=== PATIENT | male | born 1975 | race Caucasian/White ===

== ENCOUNTER 2016-11-12 17:54 | Emergency (ER) | payer MEDICAID, OTHER ==
[~2016-11-12] VITALS: Ht 175.3 cm; Wt 58.2 kg
[~2016-11-12 17:54] MED LIST: CHLO25CA9 PO; DIPH25CA61 PO; FURO-92 PO; FURO20TA3 PO; NAPR-874 PO; OMEP-110 PO; SERT50TA5 PO; SPIR100T2 PO; SPIR25TA3 PO; TRAZ50TA18 PO
[2016-11-12] MEDS ORDERED: SERT50TA5 PO (18:12)
[2016-11-12] MEDS ORDERED: DIVA-68 PO (18:12)
[2016-11-12] MEDS ORDERED: SODIUM CHLORIDE 0.9% 1,000ML IVBOLUS ONE (18:30)
[2016-11-12] MEDS ORDERED: LORazepam 2 MG/ML, 1ML IVPush ONE (18:30)
[2016-11-12] MEDS ORDERED: ONDANSETRON 2MG/ML, 2ML IVPush ONE (18:30)
[2016-11-12] MEDS ORDERED: SODIUM CHLORIDE FLUSH 10ML SYR IVF ONE (18:30)
[2016-11-12] MEDS ORDERED: FAMOTIDINE 20 MG/2 ML IVP ONE (18:30)
[2016-11-12] MEDS ORDERED: LORazepam 2 MG/ML, 1ML ONE (18:42)
[2016-11-12] MEDS ORDERED: ONDANSETRON 2MG/ML, 2ML ONE (18:44)
[2016-11-12] MEDS ORDERED: FAMOTIDINE 20 MG/2 ML ONE (18:44)
[2016-11-12 18:48] LABS: ASPARTATE AMINO TRANSFERASE 590 U/L (15-37); BLOOD UREA NITROGEN 14 mg/dL (7-18)
[2016-11-12 19:11] LABS: DAU SCREEN DISCLAIMER
[2016-11-12] MEDS ORDERED: POTASSIUM CHLORIDE 20 MEQ TAB.ER.PRT PO ONE (19:30)
[2016-11-12] MEDS ORDERED: POTASSIUM CHLORIDE 20 MEQ in SODIUM CHLORIDE 0.9% 250 ML IV ONE (19:30)
[2016-11-12] MEDS ORDERED: POTASSIUM CHLORIDE 20 MEQ TAB.ER.PRT ONE (19:42)
[2016-11-12] MEDS ORDERED: MAGNESIUM SULFATE 1 GM in SODIUM CHLORIDE 0.9% 50 ML IV ONE (21:00)
[2016-11-12] MEDS ORDERED: THIAMINE 100MG TABLET PO ONE (21:00)
[2016-11-12] MEDS ORDERED: THIAMINE 100MG TABLET ONE (21:39)
[2016-11-12 22:30] VITALS: BP 106/67
== END 2016-11-12 23:09 | disposition home or self-care (01) ==
LOC: ED 18:57
DX: K70.30 Alcoholic cirrhosis of liver without ascites (principal); F10.10 Alcohol abuse, uncomplicated; E83.42 Hypomagnesemia; E87.6 Hypokalemia
CPT/HCPCS: 36415; 80053; 80307; 81001; 82962; 83690; 83735; 85025; 85610; 85730; 93005; 96361; 96365; 96366; 96368; 96375; 99285; J2060; J2405; J3475; J3480; J7030; J7050; S0028

== ENCOUNTER 2016-11-14 07:35 | Inpatient (IN) | payer OTHER, MEDICAID ==
[~2016-11-14] VITALS: Ht 170.2 cm; Wt 60.1 kg
[~2016-11-14 07:35] MED LIST changes: +DIVA-68 PO
[2016-11-14] MEDS ORDERED: SODIUM CHLORIDE 0.9% 1,000 ML IV ONE (07:41)
[2016-11-14] MEDS ORDERED: LORazepam 2 MG/ML, 1ML ONE ×7 (07:47→12:35)
[2016-11-14] MEDS: LORazepam 2 MG/ML, 1ML IVPush PRN ×7 (07:50→12:42)
[2016-11-14] MEDS ORDERED: THIAMINE 100 MG in SODIUM CHLORIDE 0.9% 50 ML IVPB ONE (08:00)
[2016-11-14] MEDS ORDERED: SODIUM CHLORIDE 0.9% 1,000ML IVBOLUS ONE (08:00)
[2016-11-14 08:37] LABS: ASPARTATE AMINO TRANSFERASE 243 U/L (15-37); BLOOD UREA NITROGEN 10 mg/dL (7-18)
[2016-11-14] MEDS ORDERED: NS + 40MEQ KCL 1,000 ML IV ONE (08:42)
[2016-11-14] MEDS ORDERED: MAGNESIUM SULFATE 1 GM in SODIUM CHLORIDE 0.9% 50 ML IV ONE (09:00)
[2016-11-14] MEDS ORDERED: POTASSIUM CHLORIDE 40 MEQ in SODIUM CHLORIDE 0.9% 500 ML IV ONE ×2 (09:00→13:30)
[2016-11-14] MEDS ORDERED: MAGNESIUM SULFATE 1 GM/2 ML IVPush ONE (09:00)
[2016-11-14 09:51] LABS: DAU SCREEN DISCLAIMER
[2016-11-14] MEDS ORDERED: SODIUM CHLORIDE FLUSH 10ML SYR IVF PRN (10:30)
[2016-11-14] MEDS ORDERED: LORazepam 2 MG/ML, 1ML IV PRN ×2 (13:00)
[2016-11-14] MEDS ORDERED: BISACODYL 10 MG SUPP PR PRN (13:30)
[2016-11-14] MEDS ORDERED: POLYETHYLENE GLYCOL 17 GM PACKET PO PRN (13:30)
[2016-11-14] MEDS ORDERED: FOLIC ACID 1 MG, THIAMINE 100 MG, MVI ADULT 10 ML in D5%-0.9% NACL 1,000 ML IV SCH (13:30)
[2016-11-14 13:56] LABS: BLOOD UREA NITROGEN 7 mg/dL (7-18)
[2016-11-14] MEDS: methylPREDNISolone SOD SUCC 40 MG/ML IV SCH (17:11)
[2016-11-14] MEDS: PANTOPRAZOLE 40 MG IV IVPush SCH (17:34)
[2016-11-14] MEDS: SODIUM CHLORIDE 0.9% 1,000 ML IV SCH (23:01)
[2016-11-15 04:00] VITALS: BP 121/85
[2016-11-15] MEDS: SODIUM CHLORIDE 0.9% 1,000 ML IV SCH ×2 (06:05→17:45)
[2016-11-15 06:34] LABS: BLOOD UREA NITROGEN 5 mg/dL (7-18)
[2016-11-15 06:39] LABS: ASPARTATE AMINO TRANSFERASE 145 U/L (15-37)
[2016-11-15] MEDS ORDERED: PANTOPROZOLE 40MG TABLET PO SCH (07:30)
[2016-11-15] MEDS: PANTOPRAZOLE 40 MG IV IVPush SCH (07:47)
[2016-11-15] MEDS: LORazepam 2 MG/ML, 1ML IV PRN ×5 (07:47→20:09)
[2016-11-15] MEDS: THIAMINE 100MG TABLET PO SCH (09:33)
[2016-11-15] MEDS: FOLIC ACID 1 MG TABLET PO SCH (09:33)
[2016-11-15] MEDS: MULTIVITAMIN 1 TABLET PO SCH (09:33)
[2016-11-15] MEDS: DIVALPROEX 500 MG TABLET.DR PO SCH ×2 (09:48→20:43)
[2016-11-15] MEDS: SERTRALINE 50MG TABLET PO SCH (09:48)
[2016-11-15] MEDS ORDERED: MAGNESIUM SULFATE PMX 4GM/100M 100 ML IV ONE (10:00)
[2016-11-15 13:40] VITALS: BP 119/87
[2016-11-15] MEDS: methylPREDNISolone SOD SUCC 40 MG/ML IV SCH (13:52)
[2016-11-15 19:54] VITALS: BP 121/85
[2016-11-16] MEDS: SODIUM CHLORIDE 0.9% 1,000 ML IV SCH ×3 (02:05→21:24)
[2016-11-16 02:06] VITALS: BP 127/87
[2016-11-16] MEDS: LORazepam 2 MG/ML, 1ML IV PRN ×3 (02:12→21:35)
[2016-11-16 04:50] LABS: ASPARTATE AMINO TRANSFERASE 91 U/L (15-37); BLOOD UREA NITROGEN 8 mg/dL (7-18)
[2016-11-16 07:54] VITALS: BP 126/92
[2016-11-16] MEDS: THIAMINE 100MG TABLET PO SCH (08:07)
[2016-11-16] MEDS: PANTOPRAZOLE 40 MG IV IVPush SCH (08:07)
[2016-11-16] MEDS: SERTRALINE 50MG TABLET PO SCH (08:07)
[2016-11-16] MEDS: MULTIVITAMIN 1 TABLET PO SCH (08:07)
[2016-11-16] MEDS: DIVALPROEX 500 MG TABLET.DR PO SCH ×2 (08:07→21:24)
[2016-11-16] MEDS: FOLIC ACID 1 MG TABLET PO SCH (08:07)
[2016-11-16] MEDS: methylPREDNISolone SOD SUCC 40 MG/ML IV SCH (14:17)
[2016-11-16 14:31] VITALS: BP 116/79
[2016-11-16 20:24] VITALS: BP 127/88
[2016-11-16] MEDS: CHLORDIAZEPOXIDE 25 MG CAPSULE PO SCH (21:24)
[2016-11-17 01:24] VITALS: BP 126/78
[2016-11-17] MEDS: LORazepam 2 MG/ML, 1ML IV PRN ×2 (02:13→06:39)
[2016-11-17] MEDS: SODIUM CHLORIDE 0.9% 1,000 ML IV SCH (05:16)
[2016-11-17 06:05] LABS: BLOOD UREA NITROGEN 10 mg/dL (7-18)
[2016-11-17 06:08] LABS: ASPARTATE AMINO TRANSFERASE 64 U/L (15-37)
[2016-11-17 07:07] LABS: DIFF TOTAL CELLS COUNTED 100 CELL DIFF
[2016-11-17 07:12] LABS: LARGE PLATELETS 1+; VERIFY COUNTS? YES
[2016-11-17 07:22] VITALS: BP 133/85
[2016-11-17] MEDS ORDERED: LORazepam 2 MG/ML, 1ML IVPush PRN (09:00)
[2016-11-17] MEDS: THIAMINE 100MG TABLET PO SCH (09:09)
[2016-11-17] MEDS: FOLIC ACID 1 MG TABLET PO SCH (09:09)
[2016-11-17] MEDS: SERTRALINE 50MG TABLET PO SCH (09:09)
[2016-11-17] MEDS: DIVALPROEX 500 MG TABLET.DR PO SCH ×2 (09:09→21:37)
[2016-11-17] MEDS: MULTIVITAMIN 1 TABLET PO SCH (09:09)
[2016-11-17] MEDS: CHLORDIAZEPOXIDE 25 MG CAPSULE PO SCH ×3 (09:09→21:37)
[2016-11-17] MEDS ORDERED: MAGNESIUM SULFATE PMX 2GM/50ML 50 ML IV ONE (09:30)
[2016-11-17] MEDS: POTASSIUM CHLORIDE 20 MEQ TAB.ER.PRT PO SCH ×2 (10:10→16:31)
[2016-11-17 15:45] VITALS: BP 122/83
[2016-11-17] MEDS: methylPREDNISolone SOD SUCC 40 MG/ML IV SCH (16:31)
[2016-11-17] MEDS: LORazepam 1MG TABLET PO PRN (21:47)
[2016-11-17 22:26] VITALS: BP 108/75
[2016-11-18] MEDS: LORazepam 1MG TABLET PO PRN (02:16)
[2016-11-18 02:34] VITALS: BP 123/85
[2016-11-18 05:53] LABS: BLOOD UREA NITROGEN 10 mg/dL (7-18)
[2016-11-18 08:00] VITALS: BP 120/83
[2016-11-18] MEDS: SERTRALINE 50MG TABLET PO SCH (08:38)
[2016-11-18] MEDS: MULTIVITAMIN 1 TABLET PO SCH (08:38)
[2016-11-18] MEDS: FOLIC ACID 1 MG TABLET PO SCH (08:38)
[2016-11-18] MEDS: DIVALPROEX 500 MG TABLET.DR PO SCH (08:38)
[2016-11-18] MEDS: POTASSIUM CHLORIDE 20 MEQ TAB.ER.PRT PO SCH (08:38)
[2016-11-18] MEDS: THIAMINE 100MG TABLET PO SCH (08:38)
[2016-11-18] MEDS: CHLORDIAZEPOXIDE 25 MG CAPSULE PO SCH (08:38)
[2016-11-18] MEDS ORDERED: PRED5TAB26 PO (09:48)
[2016-11-18] MEDS ORDERED: CHLO25CA9 PO (09:48)
== END 2016-11-18 12:02 | disposition home or self-care (01) | DRG 896 ==
LOC: ED 08:58 → EDIP 10:03 → CCU 15:01 → 4NOR 11-16 09:40
PROVIDERS: ADMIT Hospitalist
DX: F10.239 Alcohol dependence with withdrawal, unspecified (principal); G93.40 Encephalopathy, unspecified; D61.818 Other pancytopenia; E87.6 Hypokalemia; D69.59 Other secondary thrombocytopenia; F43.10 Post-traumatic stress disorder, unspecified; G40.909 Epilepsy, unspecified, not intractable, without status epilepticus; K70.10 Alcoholic hepatitis without ascites; K74.60 Unspecified cirrhosis of liver; F32.9 Major depressive disorder, single episode, unspecified; B19.20 Unspecified viral hepatitis C without hepatic coma; Z91.018 Allergy to other foods; Z87.81 Personal history of (healed) traumatic fracture
CPT/HCPCS: 36415; 70450; 76700; 80048; 80053; 80307; 81001; 82140; 83690; 83735; 84100; 85025; 85610; 85730; 87081; 93005; 96365; 96366; 96375; 96376; J3411; J3475; J3480; J7042; C9113; J2060; J2920; J7030; J7040

== ENCOUNTER 2018-01-09 23:03 | Inpatient (IN) | payer OTHER ==
[~2018-01-09] VITALS: Ht 167.6 cm; Wt 57.4 kg
[~2018-01-09 23:03] MED LIST changes: +DIVA-61 PO; -DIVA-68 PO; -NAPR-874 PO; +NAPR250T6 PO; +PRED5TAB26 PO; -SPIR100T2 PO; +SPIR100T4 PO; -SPIR25TA3 PO; +SPIR25TA5 PO; +TRAZ-136 PO; -TRAZ50TA18 PO
[2018-01-09] MEDS ORDERED: LORazepam 2 MG/ML, 1ML ONE (23:10)
[2018-01-09] MEDS ORDERED: LORazepam 2 MG/ML, 1ML IVPush ONE (23:30)
[2018-01-09] MEDS ORDERED: SODIUM CHLORIDE 0.9% 1,000ML IVBOLUS ONE (23:30)
[2018-01-09] MEDS ORDERED: PROMETHAZINE 25 MG/ML, 1ML IM ONE (23:30)
[2018-01-09] MEDS ORDERED: THIAMINE 100 MG in SODIUM CHLORIDE 0.9% 50 ML IVPB ONE (23:30)
[2018-01-09] MEDS ORDERED: ONDANSETRON ODT 4 MG PO ONE (23:30)
[2018-01-09] MEDS ORDERED: SODIUM CHLORIDE FLUSH 10ML SYR IVF ONE (23:30)
[2018-01-09] MEDS ORDERED: ONDANSETRON ODT 4 MG ONE (23:42)
[2018-01-10] MEDS ORDERED: LORazepam 2 MG/ML, 1ML ONE ×2 (00:10→00:45)
[2018-01-10] MEDS: LORazepam 2 MG/ML, 1ML IVPush PRN ×3 (00:14→01:00)
[2018-01-10 00:21] LABS: ALANINE AMINOTRANSFERASE 49 U/L (12-78); ALBUMIN 3.1 g/dL (3.4-5.0); CALCIUM 8.3 mg/dL (8.5-10.1); CHLORIDE 97 mmol/L (98-107)
[2018-01-10 00:23] LABS: ALKALINE PHOSPHATASE 135 U/L (45-117); TOTAL PROTEIN 6.9 g/dL (6.4-8.2)
[2018-01-10 00:31] LABS: ANION GAP 13 mmol/L (5-15)
[2018-01-10] MEDS ORDERED: NS + 40MEQ KCL 1,000 ML IV ONE (00:58)
[2018-01-10] MEDS ORDERED: POTASSIUM CHLORIDE 40 MEQ in SODIUM CHLORIDE 0.9% 500 ML IV ONE ×2 (01:00→13:00)
[2018-01-10] MEDS ORDERED: PHENOBARBITAL SODIUM 640 MG in SODIUM CHLORIDE 0.9% 50 ML IV ONE (01:30)
[2018-01-10 01:48] LABS: MEAN CORPUSCULAR HEMOGLOBIN 33.4 pg (27.5-34.5); MEAN CORPUSCULAR HGB CONC 34.8 g/dL (33.2-36.2); MEAN PLATELET VOLUME 10.7 fL (7.4-10.4); PLATELET COUNT 52 x10^3/uL (130-400); RED BLOOD COUNT 4.29 x10^6/uL (4.38-5.82); RED CELL DISTRIBUTION WIDTH 14.7 % (9.4-14.8)
[2018-01-10 02:02] LABS: MD YES
[2018-01-10 02:07] LABS: BASOS#(MANUAL) 0.07 x10^3/uL (0-0.1); BASOS% (MANUAL) 1 % (0-1); LYMPH#(MANUAL) 1.52 x10^3/uL (1-3.4); LYMPHS% (MANUAL) 23 % (22-44); METAMYELOCYTES# (MANUAL) 0.07 x10^3/uL (0-0); METAMYELOCYTES% (MANUAL) 1 % (0-1); MONOS% (MANUAL) 6 % (2-9); SEG#(MANUAL) 4.55 x10^3/uL (1.8-6.8); SEGS% (MANUAL) 69 % (42-75)
[2018-01-10 02:08] LABS: <PLATELET ESTIMATE> DECREASED; LARGE PLATELETS 1+
[2018-01-10 02:09] LABS: <RBC MORPHOLOGY> NORMAL
[2018-01-10] MEDS ORDERED: MAGNESIUM SULFATE PMX 2GM/50ML 50 ML IV ONE (02:30)
[2018-01-10] MEDS ORDERED: POTASSIUM CHLORIDE 20 MEQ, MAGNESIUM SULFATE 2 GM, THIAMINE 100 MG, MVI ADULT 10 ML, FO... IV SCH (02:33)
[2018-01-10] MEDS ORDERED: hydrALAzine 20 MG/ML, 1ML IVPush PRN (03:00)
[2018-01-10] MEDS ORDERED: DOCUSATE 100 MG CAPSULE PO PRN (03:00)
[2018-01-10] MEDS ORDERED: ICN PHENOBARBITAL 10 MG/ML IV IV ONE (03:00)
[2018-01-10] MEDS ORDERED: ONDANSETRON 2MG/ML, 2ML IVPush PRN (03:00)
[2018-01-10] MEDS ORDERED: GABAPENTIN 300 MG CAPSULE PO PRN (03:00)
[2018-01-10] MEDS ORDERED: PROMETHAZINE 25 MG/ML, 1ML IM PRN (03:00)
[2018-01-10] MEDS ORDERED: LABETALOL 5MG/ML, 20ML IVPush PRN (03:00)
[2018-01-10] MEDS ORDERED: BISACODYL 10 MG SUPP PR PRN (03:00)
[2018-01-10] MEDS ORDERED: POLYETHYLENE GLYCOL 17 GM PACKET PO PRN (03:00)
[2018-01-10] MEDS ORDERED: morphine SULFATE 10 MG/ML, 1ML IVPush PRN (03:00)
[2018-01-10] MEDS ORDERED: BACLOFEN 10 MG TABLET PO PRN (03:00)
[2018-01-10 03:15] VITALS: BP 95/68
[2018-01-10 03:21] LABS: INTERNATIONAL NORMALIZED RATIO 1.61 (0.93-1.1); PROTHROMBIN TIME 16.4 Seconds (9.6-11.5)
[2018-01-10 03:48] LABS: CREATINE KINASE, TOTAL 73 U/L (39-308); FREE T4 (FREE THYROXINE) 1.21 ng/dL (0.76-1.46)
[2018-01-10 04:00] VITALS: BP 95/68
[2018-01-10] MEDS ORDERED: PHENOBARBITAL SODIUM IV PRN (04:30)
[2018-01-10] MEDS ORDERED: SODIUM CHLORIDE 0.9% IV PRN (04:30)
[2018-01-10 04:50] LABS: MEAN CORPUSCULAR HEMOGLOBIN 33.9 pg (27.5-34.5); MEAN CORPUSCULAR HGB CONC 34.9 g/dL (33.2-36.2); MEAN CORPUSCULAR VOLUME 97.1 fL (81-97); RED CELL DISTRIBUTION WIDTH 14.9 % (9.4-14.8)
[2018-01-10 04:51] LABS: CHLORIDE 108 mmol/L (98-107)
[2018-01-10 04:58] LABS: ANION GAP 9 mmol/L (5-15); CALCIUM 6.8 mg/dL (8.5-10.1); CREATININE 0.64 mg/dL (0.7-1.3)
[2018-01-10 04:59] LABS: ALANINE AMINOTRANSFERASE 38 U/L (12-78); ALBUMIN 2.2 g/dL (3.4-5.0); ALKALINE PHOSPHATASE 104 U/L (45-117); BILIRUBIN,TOTAL 5.7 mg/dL (0.2-1.0); TOTAL PROTEIN 5.5 g/dL (6.4-8.2)
[2018-01-10] MEDS: VALPROATE SODIUM 500 MG in SODIUM CHLORIDE 0.9% 100 ML IV SCH ×2 (05:39→16:02)
[2018-01-10 05:46] LABS: MEAN PLATELET VOLUME 9.5 fL (7.4-10.4)
[2018-01-10 05:47] LABS: PLATELET COUNT 36 x10^3/uL (130-400)
[2018-01-10 05:49] LABS: BASOPHILS # (AUTO) 0.01 x10^3/uL (0-0.1); BASOPHILS % (AUTO) 0 % (0-1); EOSINOPHILS # (AUTO) 0.03 x10^3/uL (0-0.4); EOSINOPHILS % (AUTO) 1 % (1-7); LYMPHOCYTES # (AUTO) 0.85 x10^3/uL (1-3.4); LYMPHOCYTES % (AUTO) 20 % (22-44); MD SCAN; MONOCYTES # (AUTO) 0.68 x10^3/uL (0.2-0.8); MONOCYTES % (AUTO) 16 % (2-9); NEUTROPHILS # (AUTO) 2.76 x10^3/uL (1.8-6.8); NEUTROPHILS % (AUTO) 64 % (42-75)
[2018-01-10 08:38] LABS: AMPHETAMINE SCREEN, URINE Negative (Negative); BARBITURATE SCREEN, URINE Positive (Negative)
[2018-01-10 08:44] LABS: BENZODIAZEPINE SCREEN, URINE Negative (Negative); CANNABINOID SCREEN, URINE Positive (Negative); COCAINE SCREEN, URINE Negative (Negative); METHADONE SCREEN, URINE Negative (Negative); OPIATE SCREEN, URINE Negative (Negative)
[2018-01-10] MEDS ORDERED: FAMOTIDINE 20 MG/2 ML IVPush SCH (09:00)
[2018-01-10 09:15] LABS: MICROSCOPIC INDICATED
[2018-01-10 09:25] LABS: CULTURE INDICATED? YES
[2018-01-10] MEDS ORDERED: PHENOBARBITAL 20 MG/5 ML ORAL SOL PO SCH (10:00)
[2018-01-10] MEDS: PHENOBARBITAL SODIUM 65 MG/ML, 1ML IM SCH ×2 (10:40→23:11)
[2018-01-10] MEDS ORDERED: POTASSIUM CHLORIDE 20 MEQ TAB.ER.PRT PO ONE (12:00)
[2018-01-10] MEDS: ERGOCALCIFEROL 50,000 UNIT CAPSULE PO SCH (13:06)
[2018-01-10] MEDS: PANTOPRAZOLE 40 MG IV IVPush SCH (13:11)
[2018-01-11] MEDS: VALPROATE SODIUM 500 MG in SODIUM CHLORIDE 0.9% 100 ML IV SCH ×2 (02:39→15:30)
[2018-01-11 04:21] LABS: MEAN CORPUSCULAR HEMOGLOBIN 34.1 pg (27.5-34.5); MEAN CORPUSCULAR HGB CONC 34.8 g/dL (33.2-36.2); MEAN CORPUSCULAR VOLUME 98.1 fL (81-97); MEAN PLATELET VOLUME 9.3 fL (7.4-10.4); RED BLOOD COUNT 3.99 x10^6/uL (4.38-5.82); RED CELL DISTRIBUTION WIDTH 14.4 % (9.4-14.8)
[2018-01-11 04:25] LABS: INTERNATIONAL NORMALIZED RATIO 1.32 (0.93-1.1); PROTHROMBIN TIME 13.5 Seconds (9.6-11.5)
[2018-01-11 04:28] LABS: ALANINE AMINOTRANSFERASE 44 U/L (12-78); ALBUMIN 2.9 g/dL (3.4-5.0); ANION GAP 9 mmol/L (5-15); CALCIUM 7.4 mg/dL (8.5-10.1); CHLORIDE 99 mmol/L (98-107); CREATININE 0.59 mg/dL (0.7-1.3)
[2018-01-11 04:30] LABS: ALKALINE PHOSPHATASE 117 U/L (45-117); BILIRUBIN,TOTAL 5.1 mg/dL (0.2-1.0); TOTAL PROTEIN 6.5 g/dL (6.4-8.2)
[2018-01-11 04:34] VITALS: BP 110/77
[2018-01-11] MEDS: THIAMINE 200 MG, MVI ADULT 10 ML, FOLIC ACID 1 MG in D5%-0.9% NACL 1,000 ML IV SCH (04:39)
[2018-01-11 05:12] LABS: PLATELET COUNT 46 x10^3/uL (130-400)
[2018-01-11] MEDS ORDERED: DIPHENHYDRAMINE 50 MG/ML, 1ML IVPush ONE (05:30)
[2018-01-11] MEDS ORDERED: DIPHENHYDRAMINE 50 MG/ML, 1ML ONE (05:38)
[2018-01-11 05:39] LABS: BASOPHILS # (AUTO) 0.03 x10^3/uL (0-0.1); BASOPHILS % (AUTO) 1 % (0-1); EOSINOPHILS # (AUTO) 0.07 x10^3/uL (0-0.4); EOSINOPHILS % (AUTO) 2 % (1-7); LYMPHOCYTES # (AUTO) 0.92 x10^3/uL (1-3.4); LYMPHOCYTES % (AUTO) 21 % (22-44); MD SCAN; MONOCYTES # (AUTO) 0.65 x10^3/uL (0.2-0.8); MONOCYTES % (AUTO) 15 % (2-9); NEUTROPHILS # (AUTO) 2.75 x10^3/uL (1.8-6.8); NEUTROPHILS % (AUTO) 62 % (42-75)
[2018-01-11] MEDS ORDERED: POTASSIUM PHOSPHATE 44 MEQ in SODIUM CHLORIDE 0.9% 500 ML IV ONE (10:30)
[2018-01-11] MEDS ORDERED: MAGNESIUM SULFATE 4 GM in SODIUM CHLORIDE 0.9% 100 ML IV ONE (10:30)
[2018-01-11] MEDS ORDERED: POTASSIUM CHLORIDE 40 MEQ in SODIUM CHLORIDE 0.9% 500 ML IV ONE (10:30)
[2018-01-11] MEDS ORDERED: POTASSIUM CHLORIDE 20 MEQ TAB.ER.PRT PO ONE (10:30)
[2018-01-11] MEDS: PHENOBARBITAL SODIUM 65 MG/ML, 1ML IM SCH ×2 (10:46→21:52)
[2018-01-11] MEDS: PANTOPRAZOLE 40 MG IV IVPush SCH (10:47)
[2018-01-12] MEDS: VALPROATE SODIUM 500 MG in SODIUM CHLORIDE 0.9% 100 ML IV SCH ×2 (03:07→16:05)
[2018-01-12 04:00] VITALS: BP 146/92
[2018-01-12] MEDS: THIAMINE 200 MG, MVI ADULT 10 ML, FOLIC ACID 1 MG in D5%-0.9% NACL 1,000 ML IV SCH (04:36)
[2018-01-12 04:39] LABS: ALANINE AMINOTRANSFERASE 43 U/L (12-78); ALBUMIN 2.8 g/dL (3.4-5.0); ANION GAP 9 mmol/L (5-15); CALCIUM 7.8 mg/dL (8.5-10.1); CHLORIDE 101 mmol/L (98-107); CREATININE 0.46 mg/dL (0.7-1.3); MEAN CORPUSCULAR HEMOGLOBIN 34.1 pg (27.5-34.5); MEAN CORPUSCULAR HGB CONC 34.6 g/dL (33.2-36.2); MEAN CORPUSCULAR VOLUME 98.5 fL (81-97); MEAN PLATELET VOLUME 8.9 fL (7.4-10.4); RED BLOOD COUNT 3.93 x10^6/uL (4.38-5.82); RED CELL DISTRIBUTION WIDTH 14.6 % (9.4-14.8)
[2018-01-12 04:41] LABS: PLATELET COUNT 46 x10^3/uL (130-400)
[2018-01-12 04:42] LABS: ALKALINE PHOSPHATASE 121 U/L (45-117); BILIRUBIN,TOTAL 3.9 mg/dL (0.2-1.0); TOTAL PROTEIN 6.5 g/dL (6.4-8.2)
[2018-01-12 04:57] LABS: BASOPHILS # (AUTO) 0.03 x10^3/uL (0-0.1); BASOPHILS % (AUTO) 1 % (0-1); EOSINOPHILS # (AUTO) 0.06 x10^3/uL (0-0.4); EOSINOPHILS % (AUTO) 2 % (1-7); LYMPHOCYTES % (AUTO) 18 % (22-44); MD SCAN; MONOCYTES # (AUTO) 0.58 x10^3/uL (0.2-0.8); MONOCYTES % (AUTO) 17 % (2-9); NEUTROPHILS # (AUTO) 2.15 x10^3/uL (1.8-6.8); NEUTROPHILS % (AUTO) 63 % (42-75)
[2018-01-12] MEDS ORDERED: POTASSIUM CHLORIDE 40 MEQ in SODIUM CHLORIDE 0.9% 500 ML IV ONE (06:30)
[2018-01-12] MEDS ORDERED: MAGNESIUM SULFATE PMX 2GM/50ML 50 ML IV ONE (06:30)
[2018-01-12] MEDS ORDERED: POTASSIUM CHLORIDE 10% 40 MEQ/30 ML UDC PO ONE (06:30)
[2018-01-12] MEDS: PANTOPRAZOLE 40 MG IV IVPush SCH (07:55)
[2018-01-12] MEDS ORDERED: PHENOBARBITAL 20 MG/5 ML ORAL SOL PO SCH (12:30)
[2018-01-12 12:35] VITALS: BP 121/87
[2018-01-12] MEDS: PHENOBARBITAL 20 MG/5 ML ORAL SOL PO SCH (13:28)
[2018-01-12 19:35] VITALS: BP 127/89
[2018-01-13] MEDS: OXYcodone IR 5MG TABLET PO PRN ×3 (00:11→21:02)
[2018-01-13] MEDS: PHENOBARBITAL 20 MG/5 ML ORAL SOL PO SCH ×2 (01:01→13:39)
[2018-01-13 01:17] VITALS: BP 125/86
[2018-01-13] MEDS: VALPROATE SODIUM 500 MG in SODIUM CHLORIDE 0.9% 100 ML IV SCH ×2 (02:48→15:18)
[2018-01-13] MEDS: ONDANSETRON ODT 4 MG PO PRN (03:19)
[2018-01-13 05:49] LABS: ALBUMIN 2.9 g/dL (3.4-5.0); ANION GAP 8 mmol/L (5-15); CHLORIDE 102 mmol/L (98-107)
[2018-01-13 05:53] LABS: ALANINE AMINOTRANSFERASE 44 U/L (12-78); ALKALINE PHOSPHATASE 125 U/L (45-117); BILIRUBIN,TOTAL 2.8 mg/dL (0.2-1.0); CREATININE 0.53 mg/dL (0.7-1.3); TOTAL PROTEIN 6.8 g/dL (6.4-8.2)
[2018-01-13] MEDS ORDERED: MAGNESIUM SULFATE PMX 2GM/50ML 50 ML IV ONE (06:30)
[2018-01-13 06:31] LABS: BASOPHILS # (AUTO) 0.01 x10^3/uL (0-0.1); BASOPHILS % (AUTO) 0 % (0-1); EOSINOPHILS # (AUTO) 0.06 x10^3/uL (0-0.4); EOSINOPHILS % (AUTO) 2 % (1-7); LYMPHOCYTES # (AUTO) 0.88 x10^3/uL (1-3.4); LYMPHOCYTES % (AUTO) 26 % (22-44); MD SCAN; MEAN CORPUSCULAR HGB CONC 34.9 g/dL (33.2-36.2); MEAN CORPUSCULAR VOLUME 97.4 fL (81-97); MEAN PLATELET VOLUME 9.2 fL (7.4-10.4); MONOCYTES # (AUTO) 0.65 x10^3/uL (0.2-0.8); MONOCYTES % (AUTO) 19 % (2-9); NEUTROPHILS # (AUTO) 1.76 x10^3/uL (1.8-6.8); NEUTROPHILS % (AUTO) 52 % (42-75); PLATELET COUNT 55 x10^3/uL (130-400); RED BLOOD COUNT 4.19 x10^6/uL (4.38-5.82); RED CELL DISTRIBUTION WIDTH 14.8 % (9.4-14.8)
[2018-01-13 06:36] VITALS: BP 126/84
[2018-01-13] MEDS: PANTOPRAZOLE 40 MG IV IVPush SCH (08:53)
[2018-01-13] MEDS: ERGOCALCIFEROL 50,000 UNIT CAPSULE PO SCH (08:53)
[2018-01-13] MEDS: THIAMINE 200 MG, MVI ADULT 10 ML, FOLIC ACID 1 MG in D5%-0.9% NACL 1,000 ML IV SCH (08:55)
[2018-01-13 13:36] VITALS: BP 129/90
[2018-01-13 19:25] VITALS: BP 143/90
[2018-01-14] MEDS: PHENOBARBITAL 20 MG/5 ML ORAL SOL PO SCH (01:17)
[2018-01-14 01:22] VITALS: BP 122/92
[2018-01-14] MEDS: VALPROATE SODIUM 500 MG in SODIUM CHLORIDE 0.9% 100 ML IV SCH (03:30)
[2018-01-14 05:34] LABS: CALCIUM 8.7 mg/dL (8.5-10.1); CHLORIDE 104 mmol/L (98-107)
[2018-01-14 05:35] LABS: MEAN CORPUSCULAR HEMOGLOBIN 34.1 pg (27.5-34.5); MEAN CORPUSCULAR HGB CONC 34.9 g/dL (33.2-36.2); MEAN CORPUSCULAR VOLUME 97.8 fL (81-97); RED BLOOD COUNT 4.38 x10^6/uL (4.38-5.82); RED CELL DISTRIBUTION WIDTH 14.5 % (9.4-14.8)
[2018-01-14 05:40] LABS: ALANINE AMINOTRANSFERASE 44 U/L (12-78); ALBUMIN 3.1 g/dL (3.4-5.0); ALKALINE PHOSPHATASE 121 U/L (45-117); ANION GAP 6 mmol/L (5-15); BILIRUBIN,TOTAL 2.5 mg/dL (0.2-1.0); TOTAL PROTEIN 7.1 g/dL (6.4-8.2)
[2018-01-14 06:03] LABS: MD YES; MEAN PLATELET VOLUME 9.9 fL (7.4-10.4); PLATELET COUNT 70 x10^3/uL (130-400)
[2018-01-14 06:06] LABS: BAND#(MANUAL) 0.04 x10^3/uL; BANDS%(MANUAL) 1 % (0-7); BASOS#(MANUAL) 0.04 x10^3/uL (0-0.1); BASOS% (MANUAL) 1 % (0-1); EOS#(MANUAL) 0.12 x10^3/uL (0.0-0.4); EOS% (MANUAL) 3 % (1-7); LYMPH#(MANUAL) 0.94 x10^3/uL (1-3.4); LYMPHS% (MANUAL) 23 % (22-44); MONOS#(MANUAL) 0.53 x10^3/uL (0.3-2.7); MONOS% (MANUAL) 13 % (2-9); SEG#(MANUAL) 2.42 x10^3/uL (1.8-6.8); SEGS% (MANUAL) 59 % (42-75)
[2018-01-14 06:07] LABS: <PLATELET ESTIMATE> DECREASED; <PLT MORPHOLOGY> NORMAL PLT MORPH; <RBC MORPHOLOGY> NORMAL
[2018-01-14 08:05] VITALS: BP 123/87
[2018-01-14] MEDS: PANTOPRAZOLE 40 MG IV IVPush SCH (08:52)
[2018-01-14] MEDS: ONDANSETRON ODT 4 MG PO PRN (08:53)
[2018-01-14] MEDS ORDERED: FOLIC ACID 1 MG TABLET PO SCH (09:00)
[2018-01-14] MEDS ORDERED: THIAMINE 100MG TABLET PO SCH (09:00)
[2018-01-14] MEDS ORDERED: ERGO500017 PO (13:05)
[2018-01-14] MEDS ORDERED: PHENOBARBITAL 20 MG/5 ML ORAL SOL PO SCH (13:30)
[2018-01-14 14:26] VITALS: BP 126/86
[2018-01-14] MEDS ORDERED: VALPROIC ACID 250 MG CAPSULE PO SCH (21:00)
[2018-01-16] MEDS ORDERED: PHENOBARBITAL 20 MG/5 ML ORAL SOL PO SCH (13:30)
== END 2018-01-14 15:25 | disposition home or self-care (01) | DRG 432 ==
LOC: ED 23:31 → EDIP 01-10 01:08 → ICU 01-10 03:20 → 3NE 01-12 11:01 → DCLOUNGE 01-14 15:19
PROVIDERS: ADMIT Internal Medicine; ATTEND Internal Medicine
DX: K70.10 Alcoholic hepatitis without ascites (principal); E43 Unspecified severe protein-calorie malnutrition; G93.41 Metabolic encephalopathy; F10.231 Alcohol dependence with withdrawal delirium; R44.3 Hallucinations, unspecified; G40.909 Epilepsy, unspecified, not intractable, without status epilepticus; D69.6 Thrombocytopenia, unspecified; E83.42 Hypomagnesemia; E86.0 Dehydration; E87.6 Hypokalemia; F43.10 Post-traumatic stress disorder, unspecified; B19.20 Unspecified viral hepatitis C without hepatic coma; F32.9 Major depressive disorder, single episode, unspecified; F19.10 Other psychoactive substance abuse, uncomplicated; Z71.41 Alcohol abuse counseling and surveillance of alcoholic; Z68.20 Body mass index [BMI] 20.0-20.9, adult
CPT/HCPCS: 36415; 99291; J7042; 76700; 80053; 80164; 80307; 81001; 82306; 82550; 82607; 83036; 83735; 84100; 84439; 84443; 85025; 85610; 87081; 87086; 96361; 96365; 96368; 96375; 96376; G0378; J2560; J3411; J3475; J3480; Q0162; C9113; J1200; J2060; J7030; J7040

== ENCOUNTER 2018-05-27 19:35 | Emergency (ER) | payer MEDICAID, OTHER ==
[~2018-05-27] VITALS: Ht 175.3 cm; Wt 65.0 kg
[~2018-05-27 19:35] MED LIST changes: +ERGO500017 PO; +SERT50TA28 PO; -SERT50TA5 PO; -TRAZ-136 PO; +TRAZ50TA66 PO
--- NOTE | 2018-05-27 19:40 | NUR ---
PT BIB [facility] C/O ETOH ABUSE AND WANTING TO DETOX. STATES DRINKING "A LOT" EVERY DAY. DENIES HX OF D/T. PT SLURRING SPEECH AND UNSTEADY GAIT, BUT NEURO OTHERWISE INTACT. NO SIGNS OF ETOH WITHDRAWALS PRESENT. CALL LIGHT WITHIN REACH. AWAITING MD ASSESSMENT.
[2018-05-27 20:13] LABS: ALANINE AMINOTRANSFERASE 51 U/L (12-78); ALBUMIN 3.1 g/dL (3.4-5.0); ANION GAP 9 mmol/L (5-15); CALCIUM 7.6 mg/dL (8.5-10.1); CHLORIDE 115 mmol/L (98-107)
[2018-05-27 20:17] LABS: ALKALINE PHOSPHATASE 243 U/L (45-117); BILIRUBIN,TOTAL 1.3 mg/dL (0.2-1.0); CREATININE 0.49 mg/dL (0.7-1.3); TOTAL PROTEIN 7.2 g/dL (6.4-8.2)
[2018-05-27 20:31] LABS: MEAN CORPUSCULAR HEMOGLOBIN 31.6 pg (27.5-34.5); MEAN CORPUSCULAR HGB CONC 33.4 g/dL (33.2-36.2); MEAN CORPUSCULAR VOLUME 94.7 fL (81-97); MEAN PLATELET VOLUME 9.6 fL (7.4-10.4); PLATELET COUNT 82 x10^3/uL (130-400); RED BLOOD COUNT 4.36 x10^6/uL (4.38-5.82); RED CELL DISTRIBUTION WIDTH 16.9 % (9.4-14.8)
[2018-05-27 20:32] LABS: MD YES
[2018-05-27 20:34] LABS: <RBC MORPHOLOGY> NORMAL; LYMPHS% (MANUAL) 49 % (22-44); MONOS#(MANUAL) 0.19 x10^3/uL (0.3-2.7); MONOS% (MANUAL) 4 % (2-9); SEG#(MANUAL) 2.21 x10^3/uL (1.8-6.8); SEGS% (MANUAL) 47 % (42-75)
[2018-05-27 20:35] LABS: <PLATELET ESTIMATE> DECREASED; <PLT MORPHOLOGY> NORMAL PLT MORPH
[2018-05-27 20:46] VITALS: BP 127/50
--- NOTE | 2018-05-27 20:47 | NUR ---
PT SLEEPING COMFORTABLY ON GURNEY. EASILY ROUSABLE TO NAME. CALL LIGHT WITHIN REACH.
--- NOTE | 2018-05-27 21:49 | NUR ---
PT SLEEPING COMFORTABLY ON GURNEY. RR EVEN AND UNLABORED. NADN.
--- NOTE | 2018-05-27 22:25 | NUR ---
PT OUT OF ROOM AND THIS RN WITNESSED PT AMB W/ STEADY GAIT TO D/C. AWARE.
--- NOTE | 2018-05-27 23:06 | NUR ---
PT SLEEPING COMFORTABLY ON GURNEY. RR EVEN AND UNLABORED. NADN.
--- NOTE | 2018-05-27 23:58 | NUR ---
PT SLEEPING COMFORTABLY ON GURNEY. RR EVEN AND UNLABORED. NADN.
--- NOTE | 2018-05-28 00:14 | NUR ---
PT AMB W/ STEADY GAIT AND STATING HE IS LEAVING. AWARE HE DOES NOT WANT TO WAIT FOR D/C PAPERWORK. PT GIVEN TAXI VOUCHER AND TAXI SERVICE CALLED BY THIS RN.
== END 2018-05-28 00:17 | disposition home or self-care (01) ==
LOC: ED 05-28 00:11
DX: F10.220 Alcohol dependence with intoxication, uncomplicated (principal)
CPT/HCPCS: 36415; 80053; 80307; 85025; 93005; 99284

== ENCOUNTER 2018-07-10 10:15 | Inpatient (IN) | payer OTHER ==
[~2018-07-10] VITALS: Ht 175.3 cm; Wt 60.7 kg
--- NOTE | 2018-07-10 10:33 | NUR ---
PT ARRIVES TO ED FOR ETOH WITHDRAWAL WITH WITNESSED SEIZURE ACTIVITY. PT HAS ATTEMPTED TO WITHDRAW BEFORE BUT HAS HAD NO SUCCESS. PT DENIES ANY TRAUMA. EMS WITNESSED 20 SECOND TONIC CLONIC SEIZURE. PT IS INCONTINENT. PT PLACED IN FALL RISK GOWN AND SEIZURE PRECAUTINS ON IN PLACE. PT ON ALL MONITORS AND CALL LIGHT IN REACH. CIWA SCORE IS 15+ AT THIS TIME.
[2018-07-10] MEDS ORDERED: ONDANSETRON 2MG/ML, 2ML ONE ×2 (10:37→17:13)
[2018-07-10] MEDS ORDERED: LORazepam 2 MG/ML, 1ML ONE ×5 (10:38→16:22)
[2018-07-10] MEDS: LORazepam 2 MG/ML, 1ML IVPush PRN ×6 (10:55→13:57)
[2018-07-10] MEDS ORDERED: ONDANSETRON 2MG/ML, 2ML IVPush ONE (11:00)
[2018-07-10] MEDS ORDERED: DEXTROSE 5% IV ONE (11:00)
[2018-07-10] MEDS ORDERED: VALPROATE SODIUM IV ONE (11:00)
[2018-07-10] MEDS ORDERED: LORazepam 2 MG/ML, 1ML IVPush ONE (11:00)
[2018-07-10] MEDS ORDERED: MAGNESIUM SULFATE 1 GM, THIAMINE 100 MG, FOLIC ACID 1 MG, MVI ADULT 10 ML in SODIUM CHL... IV ONE (11:00)
--- NOTE | 2018-07-10 11:18 | NUR ---
ADDITIONAL DOSES OF ATIVAN GIVEN. PTS CIWA NOT GOING DOWN. MD AWARE AT THIS TIME.
[2018-07-10 11:25] LABS: ALANINE AMINOTRANSFERASE 38 U/L (12-78); ALBUMIN 3.4 g/dL (3.4-5.0); ANION GAP 20 mmol/L (5-15); CALCIUM 8.3 mg/dL (8.5-10.1); CHLORIDE 102 mmol/L (98-107); CREATININE 0.93 mg/dL (0.7-1.3)
[2018-07-10 11:28] LABS: ALKALINE PHOSPHATASE 208 U/L (45-117); BILIRUBIN,TOTAL 4.6 mg/dL (0.2-1.0); TOTAL PROTEIN 7.1 g/dL (6.4-8.2)
[2018-07-10] MEDS ORDERED: MAGNESIUM SULFATE 1 GM, FOLIC ACID 1 MG, MVI ADULT 10 ML in SODIUM CHLORIDE 0.9% 1,000 ML IV ONE (11:46)
[2018-07-10] MEDS ORDERED: SODIUM CHLORIDE 0.9% 1,000ML IVBOLUS ONE (12:00)
[2018-07-10] MEDS ORDERED: SODIUM CHLORIDE FLUSH 10ML SYR IVF ONE (12:00)
[2018-07-10 12:11] LABS: MEAN CORPUSCULAR VOLUME 91.2 fL (81-97); RED BLOOD COUNT 4.39 x10^6/uL (4.38-5.82); RED CELL DISTRIBUTION WIDTH 15.9 % (9.4-14.8)
[2018-07-10 12:16] LABS: PLATELET COUNT 39 x10^3/uL (130-400)
[2018-07-10 12:17] LABS: BASOPHILS % (AUTO) 0 % (0-1); EOSINOPHILS % (AUTO) 0 % (1-7); LYMPHOCYTES # (AUTO) 0.15 x10^3/uL (1-3.4); LYMPHOCYTES % (AUTO) 3 % (22-44); MD SCAN; MEAN PLATELET VOLUME 9.2 fL (7.4-10.4); MONOCYTES # (AUTO) 0.31 x10^3/uL (0.2-0.8); MONOCYTES % (AUTO) 7 % (2-9); NEUTROPHILS # (AUTO) 4.14 x10^3/uL (1.8-6.8); NEUTROPHILS % (AUTO) 90 % (42-75)
--- NOTE | 2018-07-10 12:44 | NUR ---
PT MEDICATED PER EMAR. LYTES BAG STARTED. NILSA SIERRAED OUT AWARE.
[2018-07-10 13:00] LABS: MICROSCOPIC NOT IND
--- NOTE | 2018-07-10 13:07 | NUR ---
MD LANDEROS ASKED FOR MORE MEDICATIONS AT THIS TIME.
[2018-07-10 13:08] LABS: CULTURE INDICATED? NO
[2018-07-10] MEDS: POTASSIUM CHLORIDE 20 MEQ, MAGNESIUM SULFATE 2 GM, MVI ADULT 10 ML, FOLIC ACID 1 MG in ... IV SCH (13:21)
[2018-07-10] MEDS: SODIUM CHLORIDE 0.9% 1,000 ML IV SCH (13:21)
[2018-07-10] MEDS: ENOXAPARIN 40 MG/0.4 ML SQ SCH (13:30)
[2018-07-10] MEDS ORDERED: PHENOBARBITAL SODIUM 710 MG in SODIUM CHLORIDE 0.9% 50 ML IVPB ONE (13:30)
[2018-07-10] MEDS ORDERED: PHARMACY INSTRUCTION MC PRN ×4 (13:30)
[2018-07-10] MEDS ORDERED: BISACODYL 10 MG SUPP PR PRN (13:30)
[2018-07-10] MEDS ORDERED: LABETALOL 5MG/ML, 20ML IVPush PRN (13:30)
[2018-07-10] MEDS ORDERED: ENALAPRILAT 1.25 MG/ML, 2ML IVPush PRN (13:30)
[2018-07-10] MEDS ORDERED: POLYETHYLENE GLYCOL 17 GM PACKET PO PRN (13:30)
[2018-07-10] MEDS ORDERED: ENOXAPARIN 40 MG/0.4 ML ONE (13:41)
--- NOTE | 2018-07-10 13:58 | NUR ---
PT MEDICATED FOR SHARON MCKINNEY.
[2018-07-10] MEDS ORDERED: SODIUM CHLORIDE 0.9% IV ONE (17:00)
[2018-07-10] MEDS ORDERED: PHENOBARBITAL SODIUM IV ONE (17:00)
[2018-07-11] MEDS ORDERED: PHENOBARBITAL SODIUM 65 MG/ML, 1ML IM SCH
[2018-07-11] MEDS: SODIUM CHLORIDE 0.9% 1,000 ML IV SCH ×3 (00:25→21:47)
[2018-07-11] MEDS ORDERED: MORPHINE SULFATE 4 MG/ML, 1ML IVPush PRN (01:30)
[2018-07-11 04:26] VITALS: BP 127/86
[2018-07-11 04:40] LABS: MEAN CORPUSCULAR HEMOGLOBIN 31.2 pg (27.5-34.5); MEAN CORPUSCULAR VOLUME 91.7 fL (81-97); RED BLOOD COUNT 4.26 x10^6/uL (4.38-5.82)
[2018-07-11 04:41] LABS: ANION GAP 7 mmol/L (5-15); CALCIUM 7.5 mg/dL (8.5-10.1); CHLORIDE 101 mmol/L (98-107)
[2018-07-11 04:46] LABS: ALANINE AMINOTRANSFERASE 34 U/L (12-78); ALKALINE PHOSPHATASE 181 U/L (45-117); BILIRUBIN,TOTAL 4.5 mg/dL (0.2-1.0); CREATININE 0.56 mg/dL (0.7-1.3); TOTAL PROTEIN 6.8 g/dL (6.4-8.2)
[2018-07-11 05:32] LABS: BASOPHILS # (AUTO) 0.01 x10^3/uL (0-0.1); BASOPHILS % (AUTO) 0 % (0-1); EOSINOPHILS % (AUTO) 0 % (1-7); LYMPHOCYTES # (AUTO) 0.64 x10^3/uL (1-3.4); LYMPHOCYTES % (AUTO) 20 % (22-44); MD SCAN; MEAN PLATELET VOLUME 9.8 fL (7.4-10.4); MONOCYTES # (AUTO) 0.38 x10^3/uL (0.2-0.8); MONOCYTES % (AUTO) 12 % (2-9); NEUTROPHILS # (AUTO) 2.19 x10^3/uL (1.8-6.8); NEUTROPHILS % (AUTO) 68 % (42-75)
[2018-07-11 05:35] LABS: PLATELET COUNT 36 x10^3/uL (130-400)
[2018-07-11] MEDS ORDERED: POTASSIUM PHOSPHATE 44 MEQ in SODIUM CHLORIDE 0.9% 500 ML IV ONE (07:00)
[2018-07-11] MEDS: SENNA/DOCUSATE TABLET PO SCH (08:17)
[2018-07-11] MEDS: THIAMINE 100MG TABLET PO SCH ×2 (08:17→21:06)
[2018-07-11] MEDS ORDERED: THIAMINE 100MG TABLET PO SCH (09:00)
[2018-07-11] MEDS: PHENOBARBITAL 20 MG/5 ML ORAL SOL PO SCH ×2 (10:27→21:47)
[2018-07-11] MEDS: POTASSIUM CHLORIDE 20 MEQ, MAGNESIUM SULFATE 2 GM, MVI ADULT 10 ML, FOLIC ACID 1 MG in ... IV SCH (10:27)
[2018-07-11] MEDS: ENOXAPARIN 40 MG/0.4 ML SQ SCH (14:37)
[2018-07-11] MEDS ORDERED: SODIUM CHLORIDE 0.9% IV ONE (15:00)
[2018-07-11] MEDS ORDERED: PHENOBARBITAL SODIUM IV ONE (15:00)
[2018-07-11 20:00] VITALS: BP 120/76
[2018-07-12 01:46] VITALS: BP 124/84
[2018-07-12 04:30] LABS: ANION GAP 7 mmol/L (5-15); CALCIUM 7.6 mg/dL (8.5-10.1); CHLORIDE 102 mmol/L (98-107); CREATININE 0.56 mg/dL (0.7-1.3)
[2018-07-12 05:11] LABS: MEAN CORPUSCULAR HEMOGLOBIN 30.7 pg (27.5-34.5); MEAN CORPUSCULAR HGB CONC 33.4 g/dL (33.2-36.2); RED BLOOD COUNT 4.11 x10^6/uL (4.38-5.82); RED CELL DISTRIBUTION WIDTH 16.1 % (9.4-14.8)
[2018-07-12] MEDS: SODIUM CHLORIDE 0.9% 1,000 ML IV SCH ×3 (05:54→21:00)
[2018-07-12 06:08] LABS: MEAN PLATELET VOLUME 10.3 fL (7.4-10.4)
[2018-07-12 06:09] LABS: PLATELET COUNT 17 x10^3/uL (130-400)
[2018-07-12 06:12] LABS: MD SCAN
[2018-07-12 06:13] LABS: BASOPHILS # (AUTO) 0.01 x10^3/uL (0-0.1); BASOPHILS % (AUTO) 0 % (0-1); EOSINOPHILS # (AUTO) 0.01 x10^3/uL (0-0.4); EOSINOPHILS % (AUTO) 0 % (1-7); LYMPHOCYTES # (AUTO) 0.61 x10^3/uL (1-3.4); LYMPHOCYTES % (AUTO) 19 % (22-44); MONOCYTES # (AUTO) 0.51 x10^3/uL (0.2-0.8); MONOCYTES % (AUTO) 16 % (2-9); NEUTROPHILS # (AUTO) 2.05 x10^3/uL (1.8-6.8); NEUTROPHILS % (AUTO) 64 % (42-75)
[2018-07-12 08:10] VITALS: BP 121/85
[2018-07-12] MEDS: SENNA/DOCUSATE TABLET PO SCH (09:00)
[2018-07-12] MEDS: PHENOBARBITAL 20 MG/5 ML ORAL SOL PO SCH ×2 (10:00→21:20)
[2018-07-12] MEDS: THIAMINE 100MG TABLET PO SCH ×2 (10:03→20:51)
[2018-07-12] MEDS: POTASSIUM CHLORIDE 20 MEQ, MAGNESIUM SULFATE 2 GM, MVI ADULT 10 ML, FOLIC ACID 1 MG in ... IV SCH (10:07)
[2018-07-12] MEDS: OXYcodone IR 5MG TABLET PO PRN (14:18)
[2018-07-12 14:59] VITALS: BP 137/88
[2018-07-12 18:40] VITALS: BP 133/86
[2018-07-13] MEDS: SODIUM CHLORIDE 0.9% 1,000 ML IV SCH (01:16)
[2018-07-13 01:34] VITALS: BP 126/89
[2018-07-13 03:50] LABS: MEAN CORPUSCULAR HEMOGLOBIN 30.7 pg (27.5-34.5); MEAN CORPUSCULAR HGB CONC 33.3 g/dL (33.2-36.2); MEAN CORPUSCULAR VOLUME 92.4 fL (81-97); RED BLOOD COUNT 3.97 x10^6/uL (4.38-5.82); RED CELL DISTRIBUTION WIDTH 16.3 % (9.4-14.8)
[2018-07-13 03:52] LABS: ALBUMIN 2.7 g/dL (3.4-5.0); ANION GAP 8 mmol/L (5-15); CALCIUM 7.5 mg/dL (8.5-10.1); CHLORIDE 102 mmol/L (98-107)
[2018-07-13 03:58] LABS: ALANINE AMINOTRANSFERASE 30 U/L (12-78); ALKALINE PHOSPHATASE 149 U/L (45-117); BILIRUBIN,TOTAL 3.3 mg/dL (0.2-1.0); CREATININE 0.38 mg/dL (0.7-1.3)
[2018-07-13 04:04] LABS: MEAN PLATELET VOLUME 9.8 fL (7.4-10.4)
[2018-07-13 04:05] LABS: MD YES
[2018-07-13 04:06] LABS: PLATELET COUNT 23 x10^3/uL (130-400)
[2018-07-13 04:13] LABS: <PLATELET ESTIMATE> DECREASED; <RBC MORPHOLOGY> NORMAL; EOS#(MANUAL) 0.06 x10^3/uL (0.0-0.4); EOS% (MANUAL) 3 % (1-7); LYMPH#(MANUAL) 0.52 x10^3/uL (1-3.4); LYMPHS% (MANUAL) 26 % (22-44); MONOS#(MANUAL) 0.22 x10^3/uL (0.3-2.7); MONOS% (MANUAL) 11 % (2-9); REACTIVE LYMPHS # (MANUAL) 0.08 x10^3/uL (0-0); REACTIVE LYMPHS % (MANUAL) 4 % (0-0); SEG#(MANUAL) 1.12 x10^3/uL (1.8-6.8); SEGS% (MANUAL) 56 % (42-75)
[2018-07-13 04:14] LABS: LARGE PLATELETS 1+
[2018-07-13] MEDS ORDERED: LORazepam 0.5MG TABLET PO PRN (08:00)
[2018-07-13] MEDS ORDERED: POTASSIUM CHLORIDE 20 MEQ TAB.ER.PRT PO SCH (08:00)
[2018-07-13] MEDS ORDERED: LORazepam 2 MG/ML, 1ML IV PRN ×4 (08:00)
[2018-07-13] MEDS ORDERED: LORazepam 1MG TABLET PO PRN ×3 (08:00)
[2018-07-13 08:11] VITALS: BP 121/85
[2018-07-13] MEDS: SENNA/DOCUSATE TABLET PO SCH (08:36)
[2018-07-13] MEDS: THIAMINE 100MG TABLET PO SCH (08:36)
[2018-07-13 08:44] LABS: INTERNATIONAL NORMALIZED RATIO 1.33 (0.93-1.1); PROTHROMBIN TIME 13.8 Seconds (9.6-11.5)
[2018-07-13] MEDS ORDERED: FOLIC ACID 1 MG TABLET PO SCH (09:00)
[2018-07-13] MEDS: POTASSIUM CHLORIDE 20 MEQ, MAGNESIUM SULFATE 2 GM, MVI ADULT 10 ML, FOLIC ACID 1 MG in ... IV SCH (09:38)
[2018-07-13] MEDS: PHENOBARBITAL 20 MG/5 ML ORAL SOL PO SCH (09:38)
[2018-07-13] MEDS: OXYcodone IR 5MG TABLET PO PRN ×2 (09:49→14:47)
[2018-07-13 12:10] VITALS: BP 125/83
[2018-07-13] MEDS ORDERED: POTA20TA6 PO (15:34)
[2018-07-13] MEDS ORDERED: FOLI-17 PO (15:34)
[2018-07-13] MEDS ORDERED: THIA100T67 PO (15:34)
[2018-07-14] MEDS ORDERED: PHENOBARBITAL 20 MG/5 ML ORAL SOL PO SCH (22:00)
[2018-07-15] MEDS ORDERED: PHENOBARBITAL 20 MG/5 ML ORAL SOL PO SCH (22:00)
[2019-05-12] MEDS ORDERED: PHENOBARBITAL 20 MG/5 ML ORAL SOL PO SCH
[2019-05-14] MEDS ORDERED: PHENOBARBITAL 20 MG/5 ML ORAL SOL PO SCH
[2019-05-15] MEDS ORDERED: PHENOBARBITAL 20 MG/5 ML ORAL SOL PO SCH
== END 2018-07-13 16:55 | disposition home or self-care (01) | DRG 100 ==
LOC: ED 10:37 → EDIP 12:43 → CCU 16:38 → ICU 07-11 12:04 → 4WST 07-11 18:05
PROVIDERS: ADMIT Internal Medicine; ATTEND Internal Medicine
DX: G40.909 Epilepsy, unspecified, not intractable, without status epilepticus (principal); G93.41 Metabolic encephalopathy; E87.2 Acidosis; F10.231 Alcohol dependence with withdrawal delirium; Z91.018 Allergy to other foods; Y90.9 Presence of alcohol in blood, level not specified; B19.20 Unspecified viral hepatitis C without hepatic coma; D69.6 Thrombocytopenia, unspecified; E55.9 Vitamin D deficiency, unspecified; F32.9 Major depressive disorder, single episode, unspecified; F43.10 Post-traumatic stress disorder, unspecified; K70.9 Alcoholic liver disease, unspecified; Z82.49 Family history of ischemic heart disease and other diseases of the circulatory system; Z91.14 Patient's other noncompliance with medication regimen; K74.60 Unspecified cirrhosis of liver; R16.1 Splenomegaly, not elsewhere classified; R73.9 Hyperglycemia, unspecified
CPT/HCPCS: 36415; 99291; J7042; 80048; 80053; 80164; 80307; 81003; 83690; 83735; 84100; 85025; 85610; 85730; 87081; 93005; 96374; 96375; 96376; G0378; J1650; J2405; J2560; J3475; J3480; J2060; J7030; J7040

== ENCOUNTER 2018-08-25 21:44 | Inpatient (IN) | payer OTHER ==
[~2018-08-25] VITALS: Ht 175.3 cm; Wt 60.5 kg
[~2018-08-25 21:44] MED LIST changes: +FOLI-17 PO; +POTA20TA6 PO; +THIA100T67 PO
[2018-08-25 23:06] VITALS: BP 112/73
[2018-08-25] MEDS ORDERED: ASCO500T7 PO (23:55)
[2018-08-25] MEDS ORDERED: MELA5CAP PO (23:55)
[2018-08-25] MEDS ORDERED: TRAZ-137 PO (23:55)
[2018-08-25] MEDS ORDERED: OMEP20CA14 PO (23:55)
[2018-08-25] MEDS ORDERED: LACT10SO PO (23:55)
[2018-08-26] MEDS ORDERED: THIAMINE 200 MG in DEXTROSE 5% 50 ML IVPB ONE (02:00)
[2018-08-26] MEDS ORDERED: FOLIC ACID 5 MG/ML IM ONE (02:00)
[2018-08-26] MEDS ORDERED: DIAZEPAM 5 MG/ML, 2ML IV ONE ×3 (02:00→03:30)
[2018-08-26] MEDS ORDERED: PROMETHAZINE 25 MG/ML, 1ML IM PRN (02:00)
[2018-08-26] MEDS ORDERED: LORazepam 1MG TABLET PO PRN ×2 (02:00)
[2018-08-26] MEDS ORDERED: LORazepam 2 MG/ML, 1ML IV PRN ×4 (02:00)
[2018-08-26 02:52] LABS: INTERNATIONAL NORMALIZED RATIO 2.1 (0.93-1.1); PROTHROMBIN TIME 21.4 Seconds (9.6-11.5)
[2018-08-26 02:53] LABS: MEAN CORPUSCULAR HEMOGLOBIN 32.6 pg (27.5-34.5); MEAN CORPUSCULAR HGB CONC 33.9 g/dL (33.2-36.2); MEAN CORPUSCULAR VOLUME 96.1 fL (81-97); MEAN PLATELET VOLUME 9.9 fL (7.4-10.4); RED BLOOD COUNT 3.44 x10^6/uL (4.38-5.82)
[2018-08-26 02:54] LABS: ALANINE AMINOTRANSFERASE 52 U/L (12-78); ALBUMIN 2.4 g/dL (3.4-5.0); ANION GAP 9 mmol/L (5-15); CALCIUM 7.8 mg/dL (8.5-10.1); CHLORIDE 95 mmol/L (98-107)
[2018-08-26 02:55] LABS: PLATELET COUNT 34 x10^3/uL (130-400)
[2018-08-26 02:57] LABS: ALKALINE PHOSPHATASE 153 U/L (45-117); CREATININE 0.69 mg/dL (0.7-1.3); TOTAL PROTEIN 5.5 g/dL (6.4-8.2)
[2018-08-26 02:58] LABS: BILIRUBIN,TOTAL 20.3 mg/dL (0.2-1.0)
[2018-08-26 03:02] LABS: BASOPHILS # (AUTO) 0.07 x10^3/uL (0-0.1); BASOPHILS % (AUTO) 2 % (0-1); EOSINOPHILS # (AUTO) 0.01 x10^3/uL (0-0.4); EOSINOPHILS % (AUTO) 0 % (1-7); LYMPHOCYTES # (AUTO) 0.67 x10^3/uL (1-3.4); LYMPHOCYTES % (AUTO) 22 % (22-44); MD SCAN; MONOCYTES # (AUTO) 0.55 x10^3/uL (0.2-0.8); MONOCYTES % (AUTO) 18 % (2-9); NEUTROPHILS # (AUTO) 1.73 x10^3/uL (1.8-6.8); NEUTROPHILS % (AUTO) 57 % (42-75)
[2018-08-26] MEDS ORDERED: DIAZEPAM 5 MG/ML, 2ML IV PRN (04:00)
[2018-08-26 07:35] VITALS: BP 101/68
[2018-08-26] MEDS: MULTIVITAMINS/MINERALS TABLET PO SCH (07:41)
[2018-08-26] MEDS ORDERED: POTASSIUM CHLORIDE 40 MEQ in SODIUM CHLORIDE 0.9% 500 ML IV ONE (08:00)
[2018-08-26] MEDS ORDERED: LIDOCAINE-MPF 1%, 5ML ONE (09:23)
[2018-08-26 11:54] LABS: CELLS COUNTED 17
[2018-08-26 13:52] VITALS: BP 101/70
[2018-08-26] MEDS ORDERED: POTASSIUM CHLORIDE 20 MEQ TAB.ER.PRT PO ONE (15:00)
[2018-08-26] MEDS: SPIRONOLACTONE 25 MG TABLET PO SCH (15:51)
[2018-08-26] MEDS: LORazepam 2 MG/ML, 1ML IV PRN (19:25)
[2018-08-26 20:39] VITALS: BP 120/83
[2018-08-26] MEDS: CHLORDIAZEPOXIDE 25 MG CAPSULE PO SCH (20:49)
[2018-08-27] MEDS: LORazepam 2 MG/ML, 1ML IV PRN (02:16)
[2018-08-27 02:51] VITALS: BP 91/63
[2018-08-27] MEDS: LORazepam 0.5MG TABLET PO PRN (04:33)
[2018-08-27] MEDS: LORazepam 1MG TABLET PO PRN ×2 (06:40→12:05)
[2018-08-27 07:15] VITALS: BP 104/71
[2018-08-27] MEDS: THIAMINE 100 MG in DEXTROSE 5% 50 ML IVPB SCH (09:08)
[2018-08-27] MEDS: FUROSEMIDE 20 MG TABLET PO SCH (09:15)
[2018-08-27] MEDS: CHLORDIAZEPOXIDE 25 MG CAPSULE PO SCH ×2 (09:16→20:47)
[2018-08-27] MEDS: MULTIVITAMINS/MINERALS TABLET PO SCH (09:16)
[2018-08-27] MEDS: SPIRONOLACTONE 25 MG TABLET PO SCH (09:16)
[2018-08-27 09:27] LABS: ALBUMIN 2.5 g/dL (3.4-5.0); ANION GAP 10 mmol/L (5-15); CALCIUM 8.3 mg/dL (8.5-10.1); CHLORIDE 97 mmol/L (98-107)
[2018-08-27 09:40] LABS: ALANINE AMINOTRANSFERASE 51 U/L (12-78); ALKALINE PHOSPHATASE 151 U/L (45-117)
[2018-08-27 09:45] LABS: CREATININE 0.66 mg/dL (0.7-1.3)
[2018-08-27 09:46] LABS: TOTAL PROTEIN 5.8 g/dL (6.4-8.2)
[2018-08-27 09:50] LABS: BILIRUBIN,TOTAL 26.9 mg/dL (0.2-1.0)
[2018-08-27 10:03] LABS: MEAN CORPUSCULAR HEMOGLOBIN 33.3 pg (27.5-34.5); MEAN CORPUSCULAR HGB CONC 33.8 g/dL (33.2-36.2); MEAN CORPUSCULAR VOLUME 98.4 fL (81-97); MEAN PLATELET VOLUME 10.7 fL (7.4-10.4); RED CELL DISTRIBUTION WIDTH 20.2 % (9.4-14.8)
[2018-08-27 10:04] LABS: PLATELET COUNT 39 x10^3/uL (130-400)
[2018-08-27 10:05] LABS: BASOPHILS # (AUTO) 0.05 x10^3/uL (0-0.1); BASOPHILS % (AUTO) 1 % (0-1); EOSINOPHILS # (AUTO) 0.01 x10^3/uL (0-0.4); EOSINOPHILS % (AUTO) 0 % (1-7); LYMPHOCYTES % (AUTO) 11 % (22-44); MD SCAN; MONOCYTES # (AUTO) 0.55 x10^3/uL (0.2-0.8); MONOCYTES % (AUTO) 10 % (2-9); NEUTROPHILS # (AUTO) 4.47 x10^3/uL (1.8-6.8); NEUTROPHILS % (AUTO) 79 % (42-75)
[2018-08-27 14:00] VITALS: BP 106/68
[2018-08-27 20:08] VITALS: BP 113/77
[2018-08-27] MEDS: prednisOLONE 15 MG/5 ML ORAL SOLN PO SCH (20:47)
[2018-08-28 01:16] VITALS: BP 116/79
[2018-08-28 07:14] LABS: INTERNATIONAL NORMALIZED RATIO 2.86 (0.93-1.1); PROTHROMBIN TIME 28.8 Seconds (9.6-11.5)
[2018-08-28 07:16] LABS: ALBUMIN 2.4 g/dL (3.4-5.0); ANION GAP 13 mmol/L (5-15); CALCIUM 7.9 mg/dL (8.5-10.1); CHLORIDE 96 mmol/L (98-107); MEAN CORPUSCULAR HEMOGLOBIN 34.3 pg (27.5-34.5); MEAN CORPUSCULAR HGB CONC 35.3 g/dL (33.2-36.2); MEAN CORPUSCULAR VOLUME 97.3 fL (81-97); RED CELL DISTRIBUTION WIDTH 19.9 % (9.4-14.8)
[2018-08-28 07:29] LABS: ALANINE AMINOTRANSFERASE 48 U/L (12-78); ALKALINE PHOSPHATASE 142 U/L (45-117); CREATININE 0.62 mg/dL (0.7-1.3)
[2018-08-28 07:30] VITALS: BP 106/73
[2018-08-28 07:30] LABS: TOTAL PROTEIN 5.7 g/dL (6.4-8.2)
[2018-08-28 07:32] LABS: BILIRUBIN,TOTAL 29.3 mg/dL (0.2-1.0)
[2018-08-28] MEDS: prednisOLONE 15 MG/5 ML ORAL SOLN PO SCH (07:50)
[2018-08-28] MEDS: MULTIVITAMINS/MINERALS TABLET PO SCH (07:50)
[2018-08-28] MEDS: FUROSEMIDE 20 MG TABLET PO SCH (07:50)
[2018-08-28] MEDS: SPIRONOLACTONE 25 MG TABLET PO SCH (07:51)
[2018-08-28] MEDS: CHLORDIAZEPOXIDE 25 MG CAPSULE PO SCH ×2 (07:51→21:15)
[2018-08-28 08:06] LABS: BASOPHILS # (AUTO) 0.01 x10^3/uL (0-0.1); BASOPHILS % (AUTO) 0 % (0-1); EOSINOPHILS % (AUTO) 0 % (1-7); LYMPHOCYTES # (AUTO) 0.31 x10^3/uL (1-3.4); LYMPHOCYTES % (AUTO) 5 % (22-44); MD SCAN; MEAN PLATELET VOLUME 10.3 fL (7.4-10.4); MONOCYTES # (AUTO) 0.22 x10^3/uL (0.2-0.8); MONOCYTES % (AUTO) 4 % (2-9); NEUTROPHILS # (AUTO) 5.46 x10^3/uL (1.8-6.8); NEUTROPHILS % (AUTO) 91 % (42-75); PLATELET COUNT 58 x10^3/uL (130-400)
[2018-08-28] MEDS: THIAMINE 100 MG in DEXTROSE 5% 50 ML IVPB SCH (09:22)
[2018-08-28 15:21] VITALS: BP 114/83
[2018-08-28 20:26] VITALS: BP 102/71
[2018-08-29 01:29] VITALS: BP 106/70
[2018-08-29 06:20] LABS: MEAN CORPUSCULAR HEMOGLOBIN 34.6 pg (27.5-34.5); MEAN CORPUSCULAR HGB CONC 34.8 g/dL (33.2-36.2); MEAN CORPUSCULAR VOLUME 99.4 fL (81-97); RED CELL DISTRIBUTION WIDTH 20.1 % (9.4-14.8)
[2018-08-29 06:24] LABS: INTERNATIONAL NORMALIZED RATIO 2.71 (0.93-1.1); PROTHROMBIN TIME 27.4 Seconds (9.6-11.5)
[2018-08-29 06:25] LABS: ALBUMIN 2.2 g/dL (3.4-5.0); ANION GAP 8 mmol/L (5-15); CALCIUM 7.7 mg/dL (8.5-10.1); CHLORIDE 100 mmol/L (98-107)
[2018-08-29 06:40] LABS: BASOPHILS # (AUTO) 0.02 x10^3/uL (0-0.1); BASOPHILS % (AUTO) 0 % (0-1); EOSINOPHILS # (AUTO) 0.13 x10^3/uL (0-0.4); EOSINOPHILS % (AUTO) 1 % (1-7); LYMPHOCYTES # (AUTO) 0.62 x10^3/uL (1-3.4); LYMPHOCYTES % (AUTO) 6 % (22-44); MD SCAN; MEAN PLATELET VOLUME 10.2 fL (7.4-10.4); MONOCYTES % (AUTO) 7 % (2-9); NEUTROPHILS # (AUTO) 8.21 x10^3/uL (1.8-6.8); NEUTROPHILS % (AUTO) 85 % (42-75); PLATELET COUNT 72 x10^3/uL (130-400)
[2018-08-29 06:41] LABS: ALANINE AMINOTRANSFERASE 51 U/L (12-78); ALKALINE PHOSPHATASE 140 U/L (45-117)
[2018-08-29 06:44] LABS: CREATININE 0.77 mg/dL (0.7-1.3); TOTAL PROTEIN 5.5 g/dL (6.4-8.2)
[2018-08-29 06:45] LABS: BILIRUBIN,TOTAL 28.7 mg/dL (0.2-1.0)
[2018-08-29] MEDS ORDERED: POTASSIUM CHLORIDE 20 MEQ TAB.ER.PRT PO ONE (07:30)
[2018-08-29 08:11] VITALS: BP 97/65
[2018-08-29] MEDS ORDERED: SPIRONOLACTONE 25 MG TABLET PO SCH (09:00)
[2018-08-29] MEDS: ONDANSETRON 2MG/ML, 2ML IVPush PRN (10:25)
[2018-08-29] MEDS: RIFAXIMIN 550 MG TABLET PO SCH ×2 (10:26→21:40)
[2018-08-29] MEDS: CHLORDIAZEPOXIDE 25 MG CAPSULE PO SCH (10:26)
[2018-08-29] MEDS: FUROSEMIDE 20 MG TABLET PO SCH (10:26)
[2018-08-29] MEDS: MULTIVITAMINS/MINERALS TABLET PO SCH (10:26)
[2018-08-29] MEDS: prednisOLONE 15 MG/5 ML ORAL SOLN PO SCH (10:27)
[2018-08-29] MEDS: LORazepam 1MG TABLET PO PRN (10:46)
[2018-08-29] MEDS: THIAMINE 100 MG in DEXTROSE 5% 50 ML IVPB SCH (10:46)
[2018-08-29 14:52] VITALS: BP 106/73
[2018-08-29] MEDS: LACTULOSE 10 GM/15 ML UDC PO SCH ×2 (17:06→21:40)
[2018-08-29 20:29] VITALS: BP 112/78
[2018-08-30 02:05] VITALS: BP 112/69
[2018-08-30 08:02] LABS: INTERNATIONAL NORMALIZED RATIO 2.31 (0.93-1.1); PROTHROMBIN TIME 23.5 Seconds (9.6-11.5)
[2018-08-30 08:03] LABS: ALANINE AMINOTRANSFERASE 63 U/L (12-78); ALBUMIN 2.5 g/dL (3.4-5.0); ANION GAP 6 mmol/L (5-15); CHLORIDE 98 mmol/L (98-107)
[2018-08-30 08:14] LABS: ALKALINE PHOSPHATASE 164 U/L (45-117); CREATININE 1.12 mg/dL (0.7-1.3); TOTAL PROTEIN 5.9 g/dL (6.4-8.2)
[2018-08-30 08:17] LABS: BILIRUBIN,TOTAL 33.6 mg/dL (0.2-1.0)
[2018-08-30] MEDS ORDERED: REGADENOSON 0.4 MG/5 ML SYRINGE ONE (08:18)
[2018-08-30] MEDS ORDERED: SINCALIDE (KINEVAC) 5 MCG ONE (08:19)
[2018-08-30 08:39] LABS: MEAN CORPUSCULAR HEMOGLOBIN 34.3 pg (27.5-34.5); MEAN CORPUSCULAR HGB CONC 34.2 g/dL (33.2-36.2); MEAN CORPUSCULAR VOLUME 100.3 fL (81-97); PLATELET COUNT 92 x10^3/uL (130-400); RED BLOOD COUNT 4.32 x10^6/uL (4.38-5.82); RED CELL DISTRIBUTION WIDTH 21.1 % (9.4-14.8)
[2018-08-30 08:40] LABS: BASOPHILS # (AUTO) 0.03 x10^3/uL (0-0.1); BASOPHILS % (AUTO) 0 % (0-1); EOSINOPHILS % (AUTO) 0 % (1-7); LYMPHOCYTES % (AUTO) 11 % (22-44); MD SCAN; MONOCYTES # (AUTO) 0.85 x10^3/uL (0.2-0.8); MONOCYTES % (AUTO) 9 % (2-9); NEUTROPHILS # (AUTO) 7.42 x10^3/uL (1.8-6.8); NEUTROPHILS % (AUTO) 80 % (42-75)
[2018-08-30] MEDS: THIAMINE 100 MG in DEXTROSE 5% 50 ML IVPB SCH (10:34)
[2018-08-30] MEDS: FUROSEMIDE 20 MG TABLET PO SCH (10:35)
[2018-08-30] MEDS: RIFAXIMIN 550 MG TABLET PO SCH ×2 (10:35→20:20)
[2018-08-30] MEDS: LACTULOSE 10 GM/15 ML UDC PO SCH ×2 (10:37→20:20)
[2018-08-30] MEDS: SPIRONOLACTONE 25 MG TABLET PO SCH (10:37)
[2018-08-30] MEDS: ONDANSETRON 2MG/ML, 2ML IVPush PRN (10:37)
[2018-08-30] MEDS: MULTIVITAMINS/MINERALS TABLET PO SCH (10:37)
[2018-08-30] MEDS: prednisOLONE 15 MG/5 ML ORAL SOLN PO SCH (10:40)
[2018-08-30] MEDS: morphine SULFATE 10 MG/ML, 1ML IVPush PRN (11:10)
[2018-08-30 12:05] VITALS: BP 108/76
[2018-08-30] MEDS: CEFTRIAXONE PMX 1GM/50ML 50 ML IV SCH (18:05)
[2018-08-30 19:55] VITALS: BP 115/79
[2018-08-31] MEDS ORDERED: POTASSIUM CHLORIDE 20 MEQ TAB.ER.PRT PO ONE (01:30)
[2018-08-31 01:58] VITALS: BP 111/77
[2018-08-31 03:40] LABS: INTERNATIONAL NORMALIZED RATIO 2.3 (0.93-1.1); PROTHROMBIN TIME 23.4 Seconds (9.6-11.5)
[2018-08-31 03:44] LABS: ALBUMIN 2.2 g/dL (3.4-5.0); ANION GAP 9 mmol/L (5-15); CALCIUM 7.8 mg/dL (8.5-10.1); CHLORIDE 93 mmol/L (98-107)
[2018-08-31 03:57] LABS: ALANINE AMINOTRANSFERASE 63 U/L (12-78); ALKALINE PHOSPHATASE 141 U/L (45-117)
[2018-08-31 04:05] LABS: CREATININE 1.38 mg/dL (0.7-1.3)
[2018-08-31 04:06] LABS: BILIRUBIN,TOTAL 31.7 mg/dL (0.2-1.0); TOTAL PROTEIN 5.3 g/dL (6.4-8.2)
[2018-08-31 07:35] VITALS: BP 113/75
[2018-08-31] MEDS ORDERED: THIAMINE 100MG TABLET ONE (08:25)
[2018-08-31] MEDS: ONDANSETRON 2MG/ML, 2ML IVPush PRN (08:28)
[2018-08-31] MEDS: prednisOLONE 15 MG/5 ML ORAL SOLN PO SCH (08:30)
[2018-08-31] MEDS: FUROSEMIDE 20 MG TABLET PO SCH (08:30)
[2018-08-31] MEDS: MULTIVITAMINS/MINERALS TABLET PO SCH (08:30)
[2018-08-31] MEDS: LACTULOSE 10 GM/15 ML UDC PO SCH ×2 (08:31→20:48)
[2018-08-31] MEDS: SPIRONOLACTONE 25 MG TABLET PO SCH (08:31)
[2018-08-31] MEDS: THIAMINE 100MG TABLET PO SCH (08:31)
[2018-08-31] MEDS: RIFAXIMIN 550 MG TABLET PO SCH ×2 (08:31→20:48)
[2018-08-31] MEDS: POTASSIUM CHLORIDE 20 MEQ TAB.ER.PRT PO SCH ×2 (08:35→12:49)
[2018-08-31 14:24] VITALS: BP 109/73
[2018-08-31 17:31] LABS: ANION GAP 9 mmol/L (5-15); CALCIUM 7.9 mg/dL (8.5-10.1); CHLORIDE 93 mmol/L (98-107)
[2018-08-31 17:33] LABS: CREATININE 1.42 mg/dL (0.7-1.3)
[2018-08-31] MEDS: CEFTRIAXONE PMX 1GM/50ML 50 ML IV SCH (17:39)
[2018-08-31] MEDS ORDERED: MORPHINE SULFATE 4 MG/ML, 1ML ONE (17:50)
[2018-08-31] MEDS: morphine SULFATE 10 MG/ML, 1ML IVPush PRN (18:03)
[2018-08-31] MEDS: PHYTONADIONE 10 MG/ML, 1ML SQ SCH (18:06)
[2018-08-31 20:28] VITALS: BP 110/76
[2018-08-31] MEDS: LORazepam 0.5MG TABLET PO PRN (21:00)
[2018-09-01 01:30] VITALS: BP 115/76
[2018-09-01 06:32] LABS: MEAN CORPUSCULAR HEMOGLOBIN 34.8 pg (27.5-34.5); MEAN CORPUSCULAR HGB CONC 34.6 g/dL (33.2-36.2); MEAN CORPUSCULAR VOLUME 100.6 fL (81-97); MEAN PLATELET VOLUME 9.6 fL (7.4-10.4); PLATELET COUNT 81 x10^3/uL (130-400); RED BLOOD COUNT 4.02 x10^6/uL (4.38-5.82); RED CELL DISTRIBUTION WIDTH 21.3 % (9.4-14.8)
[2018-09-01 06:40] LABS: INTERNATIONAL NORMALIZED RATIO 2.21 (0.93-1.1); PROTHROMBIN TIME 22.5 Seconds (9.6-11.5)
[2018-09-01 06:56] LABS: ALANINE AMINOTRANSFERASE 72 U/L (12-78); ALBUMIN 2.3 g/dL (3.4-5.0); ALKALINE PHOSPHATASE 158 U/L (45-117); CALCIUM 8.1 mg/dL (8.5-10.1)
[2018-09-01 07:01] LABS: BASOPHILS # (AUTO) 0.02 x10^3/uL (0-0.1); BASOPHILS % (AUTO) 0 % (0-1); EOSINOPHILS # (AUTO) 0.06 x10^3/uL (0-0.4); EOSINOPHILS % (AUTO) 1 % (1-7); LYMPHOCYTES # (AUTO) 0.51 x10^3/uL (1-3.4); LYMPHOCYTES % (AUTO) 9 % (22-44); MD SCAN; MONOCYTES # (AUTO) 0.98 x10^3/uL (0.2-0.8); MONOCYTES % (AUTO) 17 % (2-9); NEUTROPHILS % (AUTO) 73 % (42-75)
[2018-09-01 07:21] LABS: ANION GAP 8 mmol/L (5-15); CHLORIDE 95 mmol/L (98-107); CREATININE 1.65 mg/dL (0.7-1.3); TOTAL PROTEIN 5.6 g/dL (6.4-8.2)
[2018-09-01 07:25] LABS: BILIRUBIN,TOTAL 35.8 mg/dL (0.2-1.0)
[2018-09-01] MEDS ORDERED: SODIUM CHLORIDE 0.9% 1,000 ML IV SCH (07:30)
[2018-09-01 07:35] VITALS: BP 101/65
[2018-09-01] MEDS: morphine SULFATE 10 MG/ML, 1ML IVPush PRN ×2 (08:53→16:27)
[2018-09-01] MEDS: prednisOLONE 15 MG/5 ML ORAL SOLN PO SCH (08:54)
[2018-09-01] MEDS: MULTIVITAMINS/MINERALS TABLET PO SCH (08:54)
[2018-09-01] MEDS: THIAMINE 100MG TABLET PO SCH (08:54)
[2018-09-01] MEDS: LACTULOSE 10 GM/15 ML UDC PO SCH ×2 (08:54→22:36)
[2018-09-01] MEDS: POTASSIUM CHLORIDE 20 MEQ TAB.ER.PRT PO SCH ×2 (08:54→13:43)
[2018-09-01] MEDS: RIFAXIMIN 550 MG TABLET PO SCH ×2 (08:54→22:36)
[2018-09-01 12:48] VITALS: BP 137/82
[2018-09-01] MEDS: CEFTRIAXONE PMX 1GM/50ML 50 ML IV SCH (18:29)
[2018-09-01] MEDS: PHYTONADIONE 10 MG/ML, 1ML SQ SCH (18:29)
[2018-09-01 18:30] VITALS: BP 124/85
[2018-09-01] MEDS: LORazepam 1MG TABLET PO PRN (23:43)
[2018-09-02] VITALS: BP 125/88
[2018-09-02 00:05] VITALS: BP 108/59
[2018-09-02 06:02] LABS: MEAN CORPUSCULAR HEMOGLOBIN 35.1 pg (27.5-34.5); MEAN CORPUSCULAR HGB CONC 34.6 g/dL (33.2-36.2); MEAN CORPUSCULAR VOLUME 101.5 fL (81-97); MEAN PLATELET VOLUME 9.8 fL (7.4-10.4); PLATELET COUNT 95 x10^3/uL (130-400); RED BLOOD COUNT 4.28 x10^6/uL (4.38-5.82); RED CELL DISTRIBUTION WIDTH 21.5 % (9.4-14.8)
[2018-09-02 06:05] LABS: ALBUMIN 2.4 g/dL (3.4-5.0); ANION GAP 8 mmol/L (5-15); CALCIUM 8.4 mg/dL (8.5-10.1); CHLORIDE 96 mmol/L (98-107)
[2018-09-02 06:21] LABS: ALANINE AMINOTRANSFERASE 79 U/L (12-78); ALKALINE PHOSPHATASE 156 U/L (45-117)
[2018-09-02 06:26] LABS: CREATININE 1.69 mg/dL (0.7-1.3)
[2018-09-02 06:29] LABS: BILIRUBIN,TOTAL 38.3 mg/dL (0.2-1.0)
[2018-09-02 06:57] LABS: TOTAL PROTEIN 5.8 g/dL (6.4-8.2)
[2018-09-02] MEDS ORDERED: SODIUM CHLORIDE 0.9% 500 ML IV SCH (07:00)
[2018-09-02] MEDS: morphine SULFATE 10 MG/ML, 1ML IVPush PRN ×4 (07:21→20:16)
[2018-09-02 07:26] VITALS: BP 122/80
[2018-09-02 07:46] LABS: BASOPHILS # (AUTO) 0.03 x10^3/uL (0-0.1); BASOPHILS % (AUTO) 1 % (0-1); EOSINOPHILS # (AUTO) 0.04 x10^3/uL (0-0.4); EOSINOPHILS % (AUTO) 1 % (1-7); LYMPHOCYTES # (AUTO) 0.64 x10^3/uL (1-3.4); LYMPHOCYTES % (AUTO) 9 % (22-44); MD SCAN; MONOCYTES # (AUTO) 1.05 x10^3/uL (0.2-0.8); MONOCYTES % (AUTO) 15 % (2-9); NEUTROPHILS # (AUTO) 5.18 x10^3/uL (1.8-6.8); NEUTROPHILS % (AUTO) 75 % (42-75)
[2018-09-02] MEDS: RIFAXIMIN 550 MG TABLET PO SCH (09:22)
[2018-09-02] MEDS: THIAMINE 100MG TABLET PO SCH (09:22)
[2018-09-02] MEDS: MULTIVITAMINS/MINERALS TABLET PO SCH (09:22)
[2018-09-02] MEDS: prednisOLONE 15 MG/5 ML ORAL SOLN PO SCH (09:22)
[2018-09-02] MEDS: LACTULOSE 10 GM/15 ML UDC PO SCH (09:22)
[2018-09-02] MEDS: LORazepam 0.5MG TABLET PO PRN (10:56)
[2018-09-02] MEDS: ONDANSETRON 2MG/ML, 2ML IVPush PRN (10:56)
[2018-09-02 12:06] VITALS: BP 129/88
[2018-09-02 12:37] VITALS: BP 129/92
[2018-09-02] MEDS: PHYTONADIONE 10 MG/ML, 1ML SQ SCH (17:00)
[2018-09-02] MEDS: CEFTRIAXONE PMX 1GM/50ML 50 ML IV SCH (17:17)
[2018-09-02] MEDS ORDERED: HALOPERIDOL 2 MG/ML ORAL SOL PO PRN (17:30)
[2018-09-02] MEDS ORDERED: PROCHLORPERAZINE 5 MG/ML, 2ML IVPush PRN (17:30)
[2018-09-02] MEDS ORDERED: HALOPERIDOL 0.5 MG TABLET PO PRN (17:30)
[2018-09-02 19:00] VITALS: BP 129/84
[2018-09-02] MEDS: LORazepam INTENSOL 2 MG/ML SL PRN (22:49)
[2018-09-03] MEDS: LORazepam INTENSOL 2 MG/ML SL PRN ×8 (00:17→17:24)
[2018-09-03] MEDS: ATROPINE OPHTH SOLN 1%, 2ML BC PRN ×4 (11:15→17:24)
[2018-09-03] MEDS ORDERED: SCOPOLAMINE PATCH, 1.5MG PATCH.TD72 TD SCH (12:30)
[2018-09-03] MEDS ORDERED: SCOPOLAMINE PATCH, 1.5MG PATCH.TD72 TD ONE (12:33)
[2018-09-04] MEDS: LORazepam INTENSOL 2 MG/ML SL PRN ×2 (11:42→19:41)
[2018-09-05] MEDS: LORazepam INTENSOL 2 MG/ML SL PRN ×2 (00:39→05:50)
[2018-09-05] MEDS: ATROPINE OPHTH SOLN 1%, 2ML BC PRN ×2 (03:24→05:50)
== END 2018-09-05 12:20 | disposition expired | DRG 432 ==
LOC: 4WST 23:01 → 3NW 09-02 20:03
PROVIDERS: ADMIT Family Medicine; ATTEND Family Medicine
PROC: 0W9G3ZZ Drainage of Peritoneal Cavity, Percutaneous Approach (ICD-10-PCS; principal; 2018-08-26)
DX: K70.40 Alcoholic hepatic failure without coma (principal); E43 Unspecified severe protein-calorie malnutrition; K76.6 Portal hypertension; F10.221 Alcohol dependence with intoxication delirium; K80.21 Calculus of gallbladder without cholecystitis with obstruction; Z68.1 Body mass index [BMI] 19.9 or less, adult; D68.9 Coagulation defect, unspecified; E87.1 Hypo-osmolality and hyponatremia; F10.239 Alcohol dependence with withdrawal, unspecified; Z66 Do not resuscitate; Z51.5 Encounter for palliative care; K70.31 Alcoholic cirrhosis of liver with ascites; B18.2 Chronic viral hepatitis C; D64.9 Anemia, unspecified; D69.59 Other secondary thrombocytopenia; E87.6 Hypokalemia; F43.10 Post-traumatic stress disorder, unspecified; K70.11 Alcoholic hepatitis with ascites; Z79.899 Other long term (current) drug therapy
CPT/HCPCS: 36415; 49083; 76700; 78226; 80048; 80053; 82042; 82105; 82140; 82570; 82962; 83615; 83690; 83735; 83935; 84100; 84300; 85025; 85610; 85730; 86850; 86900; 87070; 87205; 87522; 88112; 88305; 89051; G0378; J0696; J2270; J2405; J2785; J3411; J3430; J3480; A9537; C9898; J2060; J2805; J7030; J7040; J7510